=== PATIENT | female | born 1980 | race Caucasian/White ===

== ENCOUNTER 2016-12-11 14:22 | Emergency (ER) | payer OTHER ==
[2016-12-11] MEDS ORDERED: ZOFRAN IV ONE (14:53)
[2016-12-11] MEDS ORDERED: SUBLIMAZE IV ONE (14:53)
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
[2016-12-11 15:07] VITALS: BP 134/92
[2016-12-11] MEDS ORDERED: NACL ONE ×2 (15:58→16:07)
[2016-12-11 16:12] LABS: Anion Gap 14 mmol/L; Blood Urea Nitrogen 9 mg/dL (7-17); Calcium 8.3 mg/dL (8.4-10.2); Carbon Dioxide 25 mmol/L (22-30); Chloride 102.7 mmol/L (98-107); Glucose 93 mg/dL (65-100); Potassium 3.8 mmol/L (3.6-5.0); Sodium 138 mmol/L (137-145)
[2016-12-11 16:14] LABS: Basophils % (Auto) 0.4 % (0.0-1.8); Eosinophils % (Auto) 0.4 % (0.0-4.3); Mean Corpuscular HGB Conc 29 % (30-34); Platelet Count 351 K/mm3 (140-440); Red Blood Count 3.79 M/mm3 (3.65-5.03); Red Cell Distribution Width 19.2 % (13.2-15.2); White Blood Count 8.8 K/mm3 (4.5-11.0)
[2016-12-11 16:15] LABS: Hematocrit 25.2 % (30.3-42.9); Hemoglobin 7.3 gm/dl (10.1-14.3); Mean Corpuscular Hemoglobin 19 pg (28-32); Mean Corpuscular Volume 67 fl (79-97)
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
== END 2016-12-11 18:15 | disposition home or self-care (01) ==
LOC: ED 14:22
DX: S20.222A Contusion of left back wall of thorax, initial encounter (principal); S60.222A Contusion of left hand, initial encounter; R91.1 Solitary pulmonary nodule; D64.9 Anemia, unspecified; Z98.51 Tubal ligation status; V87.8XXA Person injured in other specified noncollision transport accidents involving motor vehicle (traffic), initial encounter; Y93.89 Activity, other specified; Y99.8 Other external cause status; Y92.89 Other specified places as the place of occurrence of the external cause
CPT/HCPCS: 36415; 71275; 73130; 80048; 84703; 85025; 86850; 86900; 86901; 96374; 96375; 99285; J2405; J3010; Q9967